=== PATIENT | female | born 1990 | race Caucasian/White ===

== ENCOUNTER 2022-01-07 08:47 | Outpatient (CLI) | payer OTHER, SELFPAY ==
--- NOTE | 2022-01-07 08:45 | CRLHL7_ITS ---
For Patients: As a result of the Cures Act, medical imaging exams and procedure reports are released immediately into your electronic medical record. You may view this report before your referring provider. If you have questions, please contact your health care provider. INDICATION: First trimester scan, establish dates. COMPARISON: None. TECHNIQUE: Real-time mejia-scale imaging of the pelvis was performed. FINDINGS: Sonographic imaging demonstrates a single living intrauterine gestation. The embryo demonstrates a regular cardiac rate measuring 113 beats per minute. The embryo`s crown-rump length measurement of 0.6 cm corresponds to a gestational age of 6 weeks 2 days with a sonographic due date of 08/31/2022. There is a normal-appearing yolk sac. There are no gross abnormalities noted within the embryo at this early state of development. The gestational sac has a normal appearance. There is no evidence of a perigestational hemorrhage. The amount of fluid within the sac appears appropriate for gestational age. The cervix is closed. The myometrium appears normal. Known PCOS. Corpus luteal cyst right ovary. There are no suspicious fluid collections noted in the cul-de-sac. IMPRESSION: Single living intrauterine with sonographic gestational age 6 weeks 2 days and sonographic due date 08/31/2022. Dictated by Taye Novak MD @ 01/07/2022 9:51:53 AM (Electronically Signed)
--- OUTSIDE RECORDS SUMMARY | 2022-01-07 08:51 | XMS_ITS | Clinical Summary ---
:1990 Author Organization [employer] [facility] [place] [address] Care Team Providers Name Role Phone Iva Awan MD Primary Care Provider [phone] Allergies No known active allergies Medications Medication Sig Dispensed Refills Start Date End Date Status sertraline (ZOLOFT) 100 TAKE 1 TABLET 90 tablet 0 09/16/2016 Active mg tabletIndications: BY MOUTH EVERY Generalized anxiety DAY disorder, Major depressive disorder, recurrent episode, moderate (HC) methylphenidate HCl 36 mg Take 36 mg by 0 09/01/2021 Active Extended-Release tablet mouth once daily. Active Problems Problem Noted Date Generalized anxiety disorder 04/17/2010 Major depressive disorder, recurrent episode, moderate 04/17/2010 Acne 04/27/2008 Dysmenorrhea 04/26/2006 PCOS (polycystic ovarian syndrome) Resolved Problems Problem Noted Date Resolved Date Exercise induced bronchospasm 12/15/2006 10/26/2016 Immunizations Name Administration Dates Next Due AMB Influenza, IIV3 (Age >=3 12/08/2008 years)(Flu Clinic Only) AMB Influenza, IIV4 PF (=>6 mos 12/06/2015 Flulaval,Fluzone Fluarix)(Flu Clinic Only) DTaP 05/13/2005, 08/31/1998, 01/05/1995, 07/01/1993, 05/06/1993, 02/26/1993 HIB PRP-OMP (PedvaxHIB) 04/07/1994, 05/06/1993, 02/26/1993 Hepatitis A (Adult) 11/01/2013, 06/09/2011 Hepatitis B (Peds) 01/05/1995, 05/06/1993, 02/26/1993 Human Papilloma Virus Vaccine 09/25/2010, 04/25/2010, 201004/07/2010 Influenza, IIV3 (Age >=3 years) 09/26/2013, 11/04/2012, 10/16, 11/06/2010, 03/06/2010, 01/13/2008, 12/15/2006 Influenza, IIV4 11/13/2014 MMR 08/31/1998, 04/07/1994 Meningococcal Vaccine (Menveo) 06/09/2011 Oral Polio Vaccine 08/31/1998, 07/01/1993, 05/06/1993, 02/26/1993 Tdap 11/01/2013, 05/13/2005 Tuberculin (PPD) 08/06/2014, 07/24/2014, 05/22/2013, 06/09/2011 Varicella Vaccine 10/14/2007, 04/09/1995 Family History Medical History Relation Name Comments Arthritis Mother Neck Psychiatric illness Mother OCD, Depress ion Cancer-colon Other 1 MGGparents Stroke Other 2 MGGM Cancer Paternal Grandmother skin Heart Disease Paternal Grandmother Relation Name Status Comments Mother Other 1 Other 2 Paternal Grandmother Social History Tobacco Use Types Packs/Day Years Used Date Never Smoker Smokeless Tobacco: Never Used Tobacco Cessation: Counseling Given: Yes Alcohol Use Standard Drinks/Week Comments Yes 0 (1 standard drink = 0.6 oz pure alcoho l) occasional Alcohol Habits Answer Date Recorded How often do you have a drink containing alcohol? Not asked How many drinks containing alcohol do you have on a typical Not asked day when you are drinking? How often do you have six or more drinks on one occasion? No t asked Comment: occasional 11/01/2013 Sex Assigned at Date Recorded Not on file Obstetrics History Para Term AB IAB SAB Ectopic Multiple Living Live Births 1 0 0 0 0 0 0 0 0 0 Date Outcome GA Total Labor/2nd/3rd Weight Sex Delivery Anes PTL Evie A 1 A5 Name Clin Labor Last Filed Vital Signs Vital Sign Reading Time Taken Comments Blood Pressure 119/80 09/10/2021 3:32 PM CDT Pulse 80 09/10/2021 1:20 PM CDT Temperature 36.8 ??C (98.3 ??F) 09/10/2021 1:20 PM CDT Respiratory Rate 16 09/10/2021 1:20 PM CDT Oxygen Saturation 100% 09/10/2021 3:33 PM CDT Inhaled Oxygen Concentration - - Weight 70.3 kg (155 lb) 09/10/2021 1:20 PM CDT Height 167.6 cm (5' 6) 09/10/2021 1:20 PM CDT Body Mass Index 25.02 09/10/2021 1:20 PM CDT Plan of Treatment Health Maintenance Due Date Last Done Comments Hepatitis C screening for age 1112/22/2010 18-79 BMI (ht and wt on same day) for 02/19/2017 02/20/2016, 08/2015 age 18+ Depression screening for age 12+ 02/19/2017 02/20/2016 COVID-19 vaccine series (2 - 08/24/2020 06/29/2020 Booster for Pineda series) Pap test for age 21-65 04/07/2021 04/07/2018, 12/23/2015 Influenza for age 9-49 10/16/2021 12/06/2015, 11/13/2014, 09/26/2013, Additional history exists Tetanus booster 11/02/2023 11/01/2013, 05/13/2005 Tdap Completed 11/01/2013, 05/13/2005 Results Not on filefrom Last 3 Months Insurance Payer Benefit Plan / Subscriber ID Effective Dates Phone Addre ss Type Group [place] [id number] 2017-Presen [address] [place] [address] [employer] BL[employer] OF [id number] 2014-Prese [address] [facility] [place] [facility] [place] [address] PREFERRED ONE PREFERRED ONE [id number] 2020-Presen [address] [place] [address] Carlotta CAPONE Personal/Family Self 1990 [phone] (Home) [place] [address] Carlotta CAPONE Personal/Family Self [phone] (Home) [place] [address] Care Teams Restaurant Expeditor Relationship Specialty Start Date End Date Iva Awan MD PCP - General Family Practice 08/30/201999 [place] [address]
== END 2022-01-07 08:48 | disposition home or self-care (01) ==
PROVIDERS: PCP Family Medicine; Visit Provider Advanced Practice Midwife
DX: Z34.91 Encounter for supervision of normal pregnancy, unspecified, first trimester (principal); Z3A.01 Less than 8 weeks gestation of pregnancy
CPT/HCPCS: 76817

== ENCOUNTER 2022-01-07 10:08 | Outpatient (CLI) | payer OTHER, SELFPAY ==
--- OUTSIDE RECORDS SUMMARY | 2022-01-07 10:10 | XMS_ITS | Clinical Summary ---
:1990 Author Organization [employer] [facility] [place] [address] Care Team Providers Name Role Phone Iva Awan MD Primary Care Provider [phone] Allergies No known active allergies Medications [...] Type Group [employer] [place] [id number] 2017-Presen [address] [facility] [address] [employer] OF [id number] 2014-Prese [address] [place] [address] PREFERRED ONE PREFERRED ONE [id number] 2020-Presen [address] [place] [address] Carlotta CAPONE Personal/Family Self 1990 [phone] (Home) [place] [address] Carlotta CAPONE Personal/Family Self [phone] (Home) [place] [address] Care Teams Nurse Transplant Relationship Specialty Start Date End Date Iva Awan MD PCP - General Family Practice 08/30/201999 [place] [address]
[2022-01-07 14:21] LABS: HIV 1/2/P24 Combo Screen* Negative (Negative)
[2022-01-07 14:33] LABS: Hepatitis B Surface Antigen* Negative (Negative)
[2022-01-07 14:50] LABS: Hepatitis C Virus Antibody* Negative (Negative)
[2022-01-07 15:31] LABS: Chlamydia DNA Amplified* NOT DETECTED (No Detected); GC DNA Amplified* NOT DETECTED (No Detected)
[2022-01-08 23:49] LABS: Rapid Plasma Reagin (RPR) Non Reactive (Non Reactive)
[2022-01-09 03:59] LABS: Varicella-Zoster Virus Ab, IgG 535.4 IV
[2022-01-09 04:06] LABS: Rubella Antibody IgG 33.8 IU/mL
== END 2022-01-07 10:09 | disposition home or self-care (01) ==
PROVIDERS: PCP Family Medicine; Visit Provider Advanced Practice Midwife
DX: Z34.81 Encounter for supervision of other normal pregnancy, first trimester (principal); Z3A.10 10 weeks gestation of pregnancy
CPT/HCPCS: 86592; 86703; 86762; 86787; 86803; 86850; 86900; 86901; 87086; 87340; 87491; 87591

== ENCOUNTER 2022-04-17 09:10 | Outpatient (CLI) | payer OTHER, SELFPAY ==
--- NOTE | 2022-04-17 09:15 | CRLHL7_ITS ---
For Patients: As a result of the Century Cures Act, medical imaging exams and procedure reports are released immediately into your electronic medical record. You may view this report before your referring provider. If you have questions, please contact your health care provider. INDICATION: Evaluate anatomy. COMPARISON: None. TECHNIQUE: Real time mejia scale imaging of the fetus was performed. FINDINGS: Sonographic imaging demonstrates a single living intrauterine gestation. Fetus demonstrates a regular cardiac rate of 159 beats per minute. Fetus has a breech orientation and longitudinal lie. The placenta lies posteriorly without evidence of placenta previa. Amniotic fluid volume appears normal. Single deepest vertical pocket: 4.0 cm. The cervix is closed and measures 3.5 cm in length. The composite ultrasound gestational age is calculated at 20 weeks 3 days with an estimated sonographic due date of September 01, 2022. The estimated weight is 368 grams which lies at the 50th percentile. The following biometric measurements were obtained: Biparietal diameter: 4.6 cm/20 weeks 0 days 24% Head circumference: 17.7 cm/20 weeks 1 day 24% Abdominal circumference: 15.9 cm/21 weeks 0 days 58% Femur length: 3.3 cm/20 weeks 3 days 37% The HC/AC ratio measures: 1.12 range (1.07-1.25) The FL/AC ratio measures: 21.06. On anatomic survey, there is a normal appearance of the cerebral ventricles, cisterna magna and cerebellum. The nose, lips, and facial profile appear normal. The cervical, thoracic and lumbar spine are well visualized and appear normal. There is a normal four-chamber heart view and the left and right ventricular outflow tracts appear normal. diaphragm, stomach, kidneys and bladder appear normal. There is a normal three-vessel cord and cord insertion site. The four extremities appear normal. IMPRESSION: Normal OB ultrasound exam with concordance of clinical and sonographic dating. No intrinsic abnormalities noted on anatomic survey. Dictated by Kurt Osei MD @ 04/17/2022 3:52:28 PM (Electronically Signed)
== END 2022-04-17 09:11 | disposition home or self-care (01) ==
PROVIDERS: PCP Family Medicine; Visit Provider Advanced Practice Midwife
DX: Z34.92 Encounter for supervision of normal pregnancy, unspecified, second trimester (principal); Z3A.20 20 weeks gestation of pregnancy
CPT/HCPCS: 76805

== ENCOUNTER 2022-06-09 08:12 | Outpatient (CLI) | payer OTHER, SELFPAY | END 2022-06-09 08:13 | disposition home or self-care (01) | LOC: NFLDREF 08:13 | PROVIDERS: PCP Family Medicine; Visit Provider Advanced Practice Midwife | DX: Z34.93 Encounter for supervision of normal pregnancy, unspecified, third trimester (principal); Z3A.28 28 weeks gestation of pregnancy | CPT/HCPCS: 86592; 86850 ==

== ENCOUNTER 2022-08-03 10:30 | Outpatient (CLI) | payer OTHER, SELFPAY | END 2022-08-03 10:31 | disposition home or self-care (01) | LOC: NFLDREF 08-04 18:06 | PROVIDERS: PCP Family Medicine; Referring Provider Family Medicine; Visit Provider Advanced Practice Midwife | DX: Z34.83 Encounter for supervision of other normal pregnancy, third trimester (principal) | CPT/HCPCS: 87081; 87653 ==

== ENCOUNTER 2022-08-20 07:32 | Inpatient (IN) | payer OTHER, SELFPAY ==
[2022-08-20] VITALS (21 sets, daily range): BP systolic 112–131; BP diastolic 56–86; PULSE 85–116; RESP 16–19; TEMP 36.1–36.7; O2SAT 97–100; BMI 30.7
--- NOTE | 2022-08-20 08:15 | W.PM.LDBA ---
Subjective History of Present Illness Narrative: Patient is being admitted to Labor and Delivery for spontaneous onset of labor. She reports contractions became more intense this morning at about 3 am. She was able to sleep prior but has since been feeling more regular contractions in increasing intensity. She denies any leaking of fluid or bleeding. She is a 31 year old at weeks gestation. Her full history and physical was dictated on 08/14/22 by Ciera Salas CNM. Please see this for details. OB PROBLEM LIST 1. Anxiety/Depression - well controlled with Sertraline 150mg prior to 2/ having increased anxiety, pt considering restarting Methylphenidate to see if it will improve, discussed changing medication if needed 2.ADHD- stopped taking medication with diagnosis, feels she is struggling and is considering re-started meds in second trimester. Methylphenidate 36 mg 3. A Negative blood type, partner is known A neg Needs Rhogam at 28 weeks: declines, partner is A neg 4. PCOS 5. Anemia, Hgb 10.5 at 28 weeks Recommended resuming or iron supplement, can do every other day to reduce constipation 34 weeks: 11.0 6. Plts 149 at 28 weeks, did not discuss at visit; consider repeat CBC at 34 weeks 34 weeks: 142, consider checking on admission OB - Problem Based A/P Additional Plan (1) Spontaneous onset of labor: Status: Acute (2) Pain during labor: Status: Acute (3) 38 weeks gestation of : Status: Acute (4) Rh negative status during : Status: Acute (5) Anxiety and depression: Status: Chronic (6) Attention deficit disorder: Problem details: meets dx criteria for ADD 03/2019 Status: Chronic Plan ASSESSMENT:? 31 at 38 3/7 weeks gestation? complicated by:?Anxiety/Depression on Sertraline, ADHD on Methylphenidate, A Neg Blood Type, PCOS, Anemia, and Low platetets (most recent 142) Labor type: Spontaneous, Early labor? Category 1 FHR pattern.?? Labor complicated by: None GBS negative? ? PLAN:? 1. Routine intrapartum cares as ordered. Continue with expectant management? 2. Monitoring per policy, intermittent? 3. Planning unmedicated . Desires water . Consent signed. Hep C negative. Candidate for analgesia of choice if desired.?? 4. Patient encouraged to reposition and ambulate to promote physiologic labor and .? 5. Consider labs for mildly low platelets. She will need this prior to epidural if she desires one. Offered to draw on admission or wait. She prefers to wait at this time. Will consider with IV placement if necessary. 6. Anticipate ? Delivery/Labor/Induction Plan Plan: expectant management OB Result Labs Labs: Lab Assessment Start: 08/20/22 07:39 Freq: ONCE Status: Complete Protocol: PC.OBGBS Activity Type Activity Date Activity User E-sign Co-sign Detail Recorded Client Recorded Date Recorded By Document 08/20/22 07:39 [facility] [id number] 08/20/22 07:48 [facility] 08/20/22 07:39 Lab Assessment GBS Status negative GBS Additional Criteria None No Treatment Needed OK Are Labs Available Yes Maternal Blood Type A Maternal RH Factor Negative OB Exam Physical Exam Vital signs: Temp Pulse Resp BP Pulse Ox 97.5 F L 93 18 126/72 100 08/20/22 11:00 08/20/22 11:13 08/20/22 11:00 08/20/22 11:13 08/20/22 07:23 Narrative: Vitals Reviewed Constitutional:? Alert and oriented x3 HEENT:? Normocephalic, atraumatic Neck:? Supple Lungs:? Clear to auscultation bilaterally Heart:? Regular rate and rhythm, no murmur, rub or gallop Abdomen:? Soft, nontender, and gravid. Vertex by Jose Roberto's, confirmed with cervical exam. Extremities:? No edema or erythema Cervix: 4 cm/80%/-2 station/vertex per RN exam, with bulging bag of ang NST: 145 bpm/moderate variability/present accelerations/absent decelerations/regular contractions every 2-4 minutes Detailed Labor and Delivery Exam Contraction intensity: Moderate
[2022-08-20] MEDS: OXYTOCIN 10 UNIT/ML INJ IM (13:27)
[2022-08-20] MEDS: lidocaine HCL 2 % JELLY (TOP) STERILE 6 ML TOPICAL (13:33)
--- NOTE | 2022-08-20 13:54 | W.PM.VAGDE_ITS ---
OB Procedure Vag Delivery Mother Details Mother Details: Carlotta is a 31 year-old, 3, now Para 2012, admitted on 08/20/22 at 38 3/7 weeks gestation for spontaneous labor. : 3 Para: 2 Weeks Gestation: 38.3 Admission Date: 08/20/22 Additional Details Amniotic Membrane Status: AROM Amniotic Membrane Rupture Date: 08/20/22 Amniotic Membrane Rupture Time: 13:04 Amniotic Membrane Fluid Description: Meconium Stained (Thin) Analgesia/Anesthesia Type: None Waterbirth: Yes Pitcoin: Yes ([facility] only) Labor Onset: 11:16 Complete: 13:02 Pushin:04 Heart: heart tones during second stage were reassuring via intermittent auscultation. Delivery Details Delivery Date: 08/20/22 Delivery Time: 13:13 Route of delivery: Gender: Female Infant Viability: Alive; Heart Rate Present Position at Delivery: OA Delivery Details: Carlotta was admitted for spontaneous labor and progressed normally. She entered the tub when she felt contractions had become more intense and regular. She labored well in the tub before becoming panicky and requested for the cont ractions to stop or for pain relief multiple times. She was given options to exit the tub but even with frequent requests from her and offers for a change in management, she did not get out. Shortly after she began to feel intense pressure with an urge to push. SROM noted at 1304 with light/thin meconium stained fluid. Patient was complete at 1302 and pushing at 1304. of a viable female at 1313 in hands and knees in the tub. Vertex delivered OA. Nuchal x1, somersaulted through. No shoulder. Body delivered easily and without incident. Infant passed between mothers legs for mom to bring above water. Cord noted to be wrapped across shoulder and baby was turned over to assist it off. was brought to mom's chest and stimulated for a vigorous cry. Cord was clamped and cut at > 5 minutes. APGARS were 7 at one minute and 8 at five minutes respectively. Mouth was bulb suctioned. Intact placenta with a 3 vessel cord delivered spontaneously at 1339. Fundus firm. 1st identified and not repaired in typical fashion. QBL 400 cc (including EBL of 200 from tub). Mother and baby stable; mother plans to breastfeed. weight 8lb. 1 Minute Interval Total Score: 7 5 Minute Interval Total Score: 8 Additional Details Shoulder Dystocia: No Placenta Delivery Time: 13:39 Placental Delivery Description: Spontaneous Procedure Done: Global Blood Loss: 400 Laceration: Perineal - 1st Degree Blood Loss Measurement Type: QBL (including EBL of 200 from tub) Sponge/Need Count Correct: Yes Cord Vessel Description: 3 Vessels, Nuchal Cord, Loose, Reduced and Delivered through Event Summary Status: Mother and were stable after delivery. Disposition: floor
[2022-08-20] MEDS: IBUPROFEN 600 MG TABLET PO ×2 (14:08→20:36)
[2022-08-21 00:11] VITALS: BP 124/82; PULSE 105; RESP 17; TEMP 36.6; O2SAT 98
[2022-08-21 04:07] VITALS: BP 109/67; PULSE 87; RESP 16; TEMP 36.7; O2SAT 99
[2022-08-21] MEDS: IBUPROFEN 600 MG TABLET PO ×2 (04:09→12:17)
[2022-08-21 06:59] LABS: Hemoglobin* 9.8 gm/dL (12.0-16.0)
[2022-08-21 08:01] VITALS: BP 121/72; PULSE 87; RESP 16; TEMP 36.4; O2SAT 99
--- NOTE | 2022-08-21 08:14 | P.DS_ITS ---
DS: Providers Provider Date Seen: 08/21/22 Date of admission: 08/20/22 07:32 Primary care physician: Iva Awan MD Admitting Clinician: Savita Garner CNM Attending Physician on discharge: Savita Garner CNM Date of Discharge: 08/21/22 DS: Diagnosis Discharge Diagnosis (1) Lactating mother: Status: Acute (2) care following vaginal delivery: Status: Acute (3) anemia: Status: Acute (4) Anxiety and depression: Status: Chronic Exam Narrative: Exam Narrative: GENERAL APPEARANCE:? normal affect, alert, no distress? MOOD:? appropriate? CHEST:? clear to auscultation and percussion? HEART:? regular rate and rhythm? ABDOMEN:? soft, non-tender the uterine fundus is 2 cm Below Umbilicus, Midline and is appropriate for the stage of recovery. ? PERINEUM:? mild edema of the perineum, there is a 1st degree, not repaired, that is healing well.? EXTREMITIES:? normal and no edema? Patient has no complaints? No active bleeding?? Doing well? She is requesting discharge home.? Const: Vital Signs, click to edit/add: Vital Signs - 24 hr 08/20/22 11:00 08/20/22 11:00 08/20/22 11:00 Temperature 97.5 F L Pulse Rate 88 Pulse Rate [Pulse Oximeter] Respiratory Rate 18 Blood Pressure Blood Pressure [Le ft Arm] Pulse Oximetry Oxygen Delivery [facility] 08/20/22 11:13 08/20/22 11:13 08/20/22 11:46 Temperature Pulse Rate 93 Pulse Rate [Pulse Oximeter] Respiratory Rate Blood Pressure 126/72 118/75 Blood Pressure [Le ft Arm] Pulse Oximetry Oxygen Delivery [facility] 08/20/22 11:46 08/20/22 11:51 08/20/22 12:45 Temperature 97 F L Pulse Rate 88 Pulse Rate [Pulse Oximeter] Respiratory Rate 18 Blood Pressure 121/78 Blood Pressure [Le ft Arm] Pulse Oximetry Oxygen Delivery [facility] 08/20/22 12:45 08/20/22 12:45 08/20/22 13:40 Temperature Pulse Rate 106 H Pulse Rate [Pulse Oximeter] Respiratory Rate 19 Blood Pressure 124/73 Blood Pressure [Le ft Arm] Pulse Oximetry Oxygen Delivery [facility] 08/20/22 13:40 08/20/22 13:40 08/20/22 13:55 Temperature Pulse Rate 116 H Pulse Rate [Pulse Oximeter] Respiratory Rate 18 Blood Pressure 125/76 Blood Pressure [Le ft Arm] Pulse Oximetry Oxygen Delivery [facility] 08/20/22 13:55 08/20/22 13:55 08/20/22 14:10 Temperature Pulse Rate 109 H Pulse Rate [Pulse Oximeter] Respiratory Rate 18 Blood Pressure 127/78 Blood Pressure [Le ft Arm] Pulse Oximetry Oxygen Delivery [facility] 08/20/22 14:10 08/20/22 14:10 08/20/22 14:25 Temperature Pulse Rate 106 H Pulse Rate [Pulse Oximeter] Respiratory Rate 18 Blood Pressure 125/73 Blood Pressure [Le ft Arm] Pulse Oximetry Oxygen Delivery [facility] 08/20/22 14:25 08/20/22 14:40 08/20/22 14:40 Temperature Pulse Rate 105 H 97 Pulse Rate [Pulse Oximeter] Respiratory Rate Blood Pressure 116/76 Blood Pressure [Le ft Arm] Pulse Oximetry Oxygen Delivery [facility] 08/20/22 14:55 08/20/22 14:55 08/20/22 15:10 Temperature Pulse Rate 109 H Pulse Rate [Pulse Oximeter] Respiratory Rate Blood Pressure 117/75 112/64 Blood Pressure [Le ft Arm] Pulse Oximetry Oxygen Delivery [facility] 08/20/22 15:10 08/20/22 15:40 08/20/22 15:40 Temperature Pulse Rate 110 H 109 H Pulse Rate [Pulse Oximeter] Respiratory Rate Blood Pressure 131/61 Blood Pressure [Le ft Arm] Pulse Oximetry Oxygen Delivery [facility] 08/20/22 15:55 08/20/22 15:55 08/20/22 17:00 Temperature 98.1 F Pulse Rate 113 H Pulse Rate [Pulse Oximeter] 102 H Respiratory Rate 16 Blood Pressure 117/56 L Blood Pressure [Le ft Arm] 118/71 Pulse Oximetry 97 Oxygen Delivery [facility] Room Air 08/20/22 20:41 08/21/22 00:11 08/21/22 04:07 Temperature 97.7 F 97.9 F 98.0 F Pulse Rate Pulse Rate [Pulse Oximeter] 105 H 105 H 87 Respiratory Rate 16 17 16 Blood Pressure Blood Pressure [Le ft Arm] 112/77 124/82 109/67 Pulse Oximetry 97 98 99 Oxygen Delivery [facility] Room Air Room Air Room Air 08/21/22 08:01 Temperature 97.6 F Pulse Rate Pulse Rate [Pulse Oximeter] 87 Respiratory Rate 16 Blood Pressure Blood Pressure [Le ft Arm] 121/72 Pulse Oximetry 99 Oxygen Delivery [facility] Room Air OB - DS: Summary Hospital Course Hospital Course: Patient is a 31year old, G 3 now P 2? admitted on 08/20/22 at 38 Weeks, 3 Days gestation for active labor.? She had an uncomplicated vaginal delivery.? She delivered a viable female infant.? She is breast feeding and reports things are well.? the patient has done well.? Her pain is well controlled with current medications.? She has no new complaints.? Vitals have been stable. She has remained afebrile. She is voiding without difficulty. She is passing gas and has not had a bowel movement. She is ambulating and denies any dizziness. She is planning partner vasectomy and condoms or Caya until then for control.?She is anemic at 9.8. PO iron supplementation was ordered.?Baby was A- blood type so Rhogam was not needed. ? Peripartum Data Infant delivery method: Vaginal Laceration description: Perineal - 1st Degree (not repaired) Episiotomy description: None complications: none [place] Gender: Female Discharge Plan: Home Status at Discharge Functional status at discharge: independent ambulation Overall status at discharge: patient is progressing back to baseline Time Spent with Patient Time attestation: Total time spent providing and/or coordinating discharge services: Discharge Plan Discharge Disposition: Home, Self-Care Date of Admission: 08/20/22 07:32 Attending Provider on Discharge: Dimple Salas Primary Care Provider: Iva Awan Condition: Stable Anticipated Discharge Date/Time: 08/21/22 15:00 Discharge Medications: New ibuprofen 600 mg Tablet 600 mg PO Q6H PRNQty: 60 0RF Continued prenat.vits,alda,dag-yfwr-drydr Tablet 1 tab PO QDAY ferrous fumarate 89 mg (29 mg iron) tablet 89 mg PO QDAY docusate sodium [Colace] 100 mg capsule 100 mg PO QDAY sertraline 100 mg tablet 150 mg PO DAILY Qty: 145 4RF methylphenidate HCl 36 mg tablet extended release 24hr 36 mg PO DAILY Qty: 30 0RF Rx Instructions: Needs to be seen in August 2022 for further refills Discontinued famotidine [Pepcid AC] 10 mg tablet 10 mg PO QDAY calcium carbonate [Tums] 300 mg (750 mg) tablet,chewable 300 mg PO BID metoclopramide HCl [Reglan] 10 mg tablet 10 mg PO Q6H PRN (Reason: nausea and vomiting) Qty: 30 2RF ondansetron 4 mg tablet,disintegrating 4 mg PO TID PRN (Reason: nausea and vomiting) Qty: 30 2RF Discharge Orders: Discharge Order (Routine); Ordered 08/21/22 Ordered By: Dimple Salas Additional Instructions: Discharge instructions were reviewed with the patient including signs and symptoms of infection and home going medications.? Lifting Restrictions: 20 pounds for 6? weeks? ?? Do not drive while taking narcotic pain meds.? Off Work or School for 6 weeks.? ?? Symptoms to report to doctor:? -Bleeding that saturates more than one pad per hour? -Passing clots larger than the size of a golf ball? -Pain not relieved by prescribed medication? -Fever above 100.4 degrees Fahrenheit? -A foul vaginal odor? -Difficulty in emotions, mood and functions? -Thoughts of hurting yourself and/or ? -Painful, reddened area in your breast? -Any drainage, redness or tenderness in your IV/epidural site? -Severe headache that doesn't improve after taking medications? -Changes in vision, including temporary loss of vision, blurred vision, and/or light sensitivity? -Upper abdominal pain (usually under ribs on the right side)? -Decrease in urination or painful, frequent urinating? -Chest pain? -Shortness of breath? -Tenderness or pain with redness and/swelling in the calf(s) of your leg? ?? Follow Up in clinic in 2 and 6 weeks.? ?? consultation services are available to all mothers and babies for the first year after delivery.? To make an appointment, please call [phone].? Activity Level: Activity as Tolerated Discharge Diet: Regular Follow Up Appointments: [facility] [Provider Group] Iva Awan MD [Primary Care Provider] - Forms: MyHealth Info Instructions
[2022-08-21 12:00] VITALS: BP 120/69; PULSE 87; RESP 16; TEMP 36.5; O2SAT 99
[2022-08-21] MEDS: DOCUSATE SODIUM 100 MG CAPSULE PO (12:17)
== END 2022-08-21 15:45 | disposition home or self-care (01) | DRG 806 ==
LOC: OB OUT 07:32 → OB 07:32
PROVIDERS: Admitting Provider Advanced Practice Midwife; PCP Family Medicine; Visit Provider Advanced Practice Midwife
DX: O99.344 Other mental disorders complicating childbirth (principal); D62 Acute posthemorrhagic anemia; O77.0 Labor and delivery complicated by meconium in amniotic fluid; O70.0 First degree perineal laceration during delivery; F41.9 Anxiety disorder, unspecified; F32.A Depression, unspecified; F90.9 Attention-deficit hyperactivity disorder, unspecified type; O26.893 Other specified pregnancy related conditions, third trimester; Z67.11 Type A blood, Rh negative; O99.02 Anemia complicating childbirth; O99.284 Endocrine, nutritional and metabolic diseases complicating childbirth; E28.2 Polycystic ovarian syndrome; Z37.0 Single live birth; Z3A.38 38 weeks gestation of pregnancy
CPT/HCPCS: 36415; 85018; A9270; J2590

== ENCOUNTER 2023-03-30 11:22 | Outpatient (CLI) | payer OTHER, SELFPAY ==
--- OUTSIDE RECORDS SUMMARY | 2023-03-31 06:09 | XMS_ITS | Clinical Summary ---
Author Name Unknown Organization [facility] Address [place], [place] [address] Care Team Providers Care [employer] Advisor Name Role Phone Iva Awan MD Primary Care Provider + Allergies No known active allergies Medications Medication Sig Dispensed Refills Start Date End Date Status sertraline (ZOLOFT) 100 mg tabletIndications:Gen eralized anxiety disorder,Major depressive disorder, recurrent episode, moderate (HC) TAKE 1 TABLET BY MOUTH EVERY DAY 90 tablet 0 09/16/2016 Active methylphenidate HCl 36 mg Extended-Release tablet Take 36 mg by mouth once daily. 0 09/01/2021 Active Active Problems Problem Noted Date Diagnosed Date Generalized anxiety disorder 04/17/2010 Major depressive disorder, recurrent episode, mo derate 04/17/2010 Acne 04/27/2008 Dysmenorrhea 04/26/2006 PCOS (polycystic ovarian syndrome) Resolved Problems Problem Noted Date Diagnosed Date Resolved Date Exercise induced bronchospasm 12/15/2006 10/26/2016 Immunizations Name Administration Dates Next Due AMB Influenza, IIV3 (Age >=3 years)(Flu Clinic Only) 12/08/2008 AMB Influenza, IIV4 PF (=>6 mos Flulaval,Fluzone Fluarix)(Flu Clinic Only) 12/06/2015 DTaP 05/13/2005, 9,01/05/1995,06/15,05/06/1993,02/26/1993 HIB PRP-OMP (PedvaxHIB) 04/07/1994,05/06/1993, Hepatitis A (Adult) 11/01/2013,06/09/2011 Hepatitis B (Peds) 01/05/1995,05/06/1993, 994 Human Papilloma Virus Vaccine 09/25/2010, 011,03/06/2010 04/07/2010 Influenza, IIV3 (Age >=3 years) 09/27/19 14,11/04/2012,10/31/2012,10/17,03/06/2010,01/13/2008,12/16/19 07 Influenza, IIV4 11/13/2014 MMR 08/31/1998,04/07/1994 Meningococcal Vaccine (Menveo) 06/09/2011 Oral Polio Vaccine 08/31/1998, 4,05/06/1993,02/15 Tdap 11/01/2013,05/13/2005 Tuberculin (PPD) 08/06/2014, 5,05/22/2013,05/17 Varicella Vaccine 10/14/2007,04/09/1995 Family History Medical History Relation Name Comments Arthritis Mother Neck Psychiatric illness Mother OCD, Dep ression Cancer-colon Other 1 MGGparents Stroke Other 2 MGGM Cancer Paternal Grandmother skin Heart Disease Paternal Grandmother Relation Name Status Comments Mother Other 1 Other 2 Paternal Grandmother Social History Tobacco Use Types Packs/Day Years Used Date Smoking Tobacco: Never Smokeless Tobacco: Never Tobacco Cessation:Counseling Given: Yes Alcohol Use Standard Drinks/Week Comments Yes 0 (1 standard drink = 0.6 oz pur e alcohol) occasional Sex and Gender Information Value Date Recorded Sex Assigned at Not on file Gender Identity Not on file Sexual Orientation Not on file Obstetrics History Para Term AB IAB SAB Ectopic Multiple Livin g Live Births 1 0 0 0 0 0 0 0 0 0 Date Outcome GA Total Labor Labor/2nd/3rd Weight Sex Delivery Anes PTL Evie A1 A5 Name Cl in Last Filed Vital Signs Vital Sign Reading Time Taken Comments Blood Pressure 119/80 09/10/2021 3:32 PM CDT Pulse 80 09/10/2021 1:20 PM CDT Temperature 36.8 ??C (98.3 ??F) 09/10/2021 1:20 PM CD T Respiratory Rate 16 09/10/2021 1:20 PM CDT Oxygen Saturation 100% 09/10/2021 3:33 PM CDT Inhaled Oxygen Concentration - - Weight 70.3 kg (155 lb) 09/10/2021 1:20 PM CDT Height 167.6 cm (5' 6) 09/10/2021 1:20 PM CDT Body Mass Index 25.02 09/10/2021 1:20 PM CDT Plan of Treatment Health Maintenance Due Date Last Done Comments HIV for age 15-65 12/23/2007 Hepatitis C screening for age 18-79 2010 BMI (ht and wt on same day) for age 18+ 02/19/2017 02/20/2016, 12/23/2015 Depression screening for age 12+ 02/19/2017 02/20/2016 COVID-19 vaccine series ( season) 2022 06/29/2020 Influenza for age 9-49 10/16/2022 6, 11/13/2014, 09/26/2013, Additional history exists Tetanus booster 11/02/2023 11/01/2013, 05/13/2005 Pap test for age 21-65 10/07/2025 3, 10/07/2022, 04/07/2018, Additional history exists Tdap Completed 11/01/2013, 05/13/2005 Pneumococcal series for age 6-64 Aged Out No longer eligible based on patient's age to complete this topic Care Teams [employer] Advisor Relationship Specialty Start Date End Date Iva Awan MD [address] [place] [address] PCP - General Family Practice 08/30/20
== END 2023-03-30 11:23 | disposition home or self-care (01) ==
LOC: NFLDREF 03-31 06:08
PROVIDERS: PCP Family Medicine; Referring Provider Family Medicine; Visit Provider Family Medicine
DX: F98.8 Other specified behavioral and emotional disorders with onset usually occurring in childhood and adolescence (principal); F41.9 Anxiety disorder, unspecified; F32.A Depression, unspecified; E28.2 Polycystic ovarian syndrome; O90.81 Anemia of the puerperium; Z13.9 Encounter for screening, unspecified
CPT/HCPCS: 80053; 80061; 82728

== ENCOUNTER 2024-04-25 09:43 | Outpatient (CLI) | payer OTHER, SELFPAY | END 2024-04-25 09:44 | disposition home or self-care (01) | LOC: NFLDREF 04-27 08:42 | PROVIDERS: PCP Family Medicine; Referring Provider Family Medicine; Visit Provider Family Medicine | DX: E78.5 Hyperlipidemia, unspecified (principal); E28.2 Polycystic ovarian syndrome | CPT/HCPCS: 80061 ==